=== PATIENT | male | born 1930 | race Caucasian/White ===

== ENCOUNTER 2017-11-01 16:52 | Inpatient (IN) | payer MEDICARE, MEDICAID ==
--- NOTE | 2017-11-01 18:32 | NUR ---
DAILY NURSING NOTE Patient came from [facility] via [facility], patient is asleep, easily arousable, responds to voice, such as his name, however responds minimally to pain stimuli, patient is on O2 @ 2lpm saturations @ 87%. other vitals checked YK=517/62, P=113, T=97.5, RR=22. Skin and body assessments done, skin is intact, noted redness on the rt. groin and blanchable redness on the sacrum. alum plant supervisor was notified due to patient unstable condition, assessed by Export Clerk Blood sugar was 139mg/dl. saturation is @ 91% @ 4LPM, RT was then notified to further assess the patient. MD was notified promptly for an order to transfer patient to ER. Received an order from Dr. Abdi to transfer patient in the ER at [facility] for further evaluation. Report was given to ER nurse Dominic Marcelo RN.
[2017-11-01] MEDS ORDERED: PRAV20TA4 PO (18:34)
[2017-11-01] MEDS ORDERED: ASPI-1094 PO (18:34)
[2017-11-01] MEDS ORDERED: ATOR20TA27 PO (18:34)
[2017-11-01] MEDS ORDERED: CLOP75TA15 PO (18:34)
[2017-11-01] MEDS ORDERED: ACET325C5 PO (18:34)
[2017-11-01] MEDS ORDERED: ONDA4SOL2 IV (18:34)
[2017-11-01] MEDS ORDERED: CHOL200074 PO (18:34)
== END 2017-11-01 18:15 | disposition short-term general hospital (02) | DRG 57 ==
PROVIDERS: ADMIT Physical Medicine & Rehabilitation Pain Medicine; ATTEND Physical Medicine & Rehabilitation Pain Medicine
DX: I69.398 Other sequelae of cerebral infarction (principal)

== ENCOUNTER 2017-11-01 18:18 | Inpatient (IN) | payer MEDICARE, MEDICAID ==
[~2017-11-01] VITALS: Ht 170.2 cm; Wt 80.4 kg
--- NOTE | 2017-11-01 18:21 | NUR ---
PT IS IN BED # 1A. PT IS RESTING IN BED COMFORTABLY, WAITING FOR ER MD EVALUATION.
[2017-11-01] MEDS ORDERED: ACET325C5 PO (18:34)
[2017-11-01] MEDS ORDERED: CLOP75TA15 PO (18:34)
[2017-11-01] MEDS ORDERED: ATOR20TA27 PO (18:34)
[2017-11-01] MEDS ORDERED: ASPI-1094 PO (18:34)
[2017-11-01] MEDS ORDERED: ONDA4SOL2 IV (18:34)
[2017-11-01] MEDS ORDERED: CHOL200074 PO (18:34)
[2017-11-01] MEDS ORDERED: PRAV20TA4 PO (18:34)
--- NOTE | 2017-11-01 18:37 | NUR ---
DR DURHAM EVALUATED THE PT.
--- NOTE | 2017-11-01 19:07 | NUR ---
REPORT GIVEN TO TRAVEL INFORMATION CENTER SUPERVISORFARROWING WORKER MOE.
--- NOTE | 2017-11-01 19:10 | NUR ---
report received from day shift nurse. pt aox1, able to state his name and follow commands. pt on 6L of O2 with simple mask O2sat at 96%. pt has shallow non labored breathing with equal respirations. VSS. lab at bedside for blood draw. will continue to monitor.
[2017-11-01 19:11] LABS: *BLOOD, URINE 3+ (NEGATIVE); *CLARITY,URINE CLOUDY (CLEAR); *COLOR,URINE YELLOW (YELLOW); *KETONES,URINE NEGATIVE (NEGATIVE); *PROTEIN,URINE 2+ (NEGATIVE); LEUKOCYTE ESTERASE ,URINE NEGATIVE (NEGATIVE); NITRITE, URINE NEGATIVE (NEGATIVE); UGLUCOSE NEGATIVE (NEGATIVE)
[2017-11-01 19:15] LABS: *BILIRUBIN,URIN 1+ (NEGATIVE)
[2017-11-01 19:33] LABS: WBC,URINE 0-3 /HPF (0-3)
[2017-11-01 19:34] LABS: BACTERIA,URINE NONE SEEN /HPF (NONE SEEN); SQUAMOUS EPITHELIAL CELL,UR NONE SEEN /HPF (NONE SEEN); URINE AMORPHOUS URATE MODERATE /HPF
[2017-11-01 19:35] LABS: BASOPHILS % (AUTO) 0.3 % (0.0-2.0); EOSINOPHILS % (AUTO) 0.1 % (0.0-7.0); HEMATOCRIT 48.9 % (36.7-47.1); HEMOGLOBIN 16.4 g/dL (12.5-16.3); LYMPHOCYTES # (AUTO) 0.8 K/uL (20.0-40.0); LYMPHOCYTES % (AUTO) 7.6 % (20.5-51.5); MEAN CORPUSCULAR HEMOGLOBIN 30.6 uug (23.8-33.4); MEAN CORPUSCULAR HGB CONC 34 g/dL (32.5-36.3); MEAN CORPUSCULAR VOLUME 91.2 fL (73.0-96.2); MONOCYTES # (AUTO) 1.3 K/uL (2.0-10.0); MONOCYTES % (AUTO) 11.8 % (0.0-11.0); NEUTROPHILS # (AUTO) 8.9 K/uL (1.8-8.9); NEUTROPHILS % (AUTO) 80.2 % (38.5-71.5); PLATELET COUNT (AUTO) 193 K/uL (152-348); RED BLOOD CELL COUNT(AUTO) 5.37 MIL/uL (4.06-5.63); WHITE BLOOD COUNT (AUTO) 11.1 K/uL (3.6-10.2)
[2017-11-01 20:22] LABS: ALANINE AMINOTRANSFERASE 21 U/L (16-63); ALKALINE PHOSPHATASE 89 U/L (50-136); ASPARTATE AMINOTRANSFERASE 15 U/L (15-37); BILIRUBIN,DIRECT 0.2 mg/dL (0.0-0.2); BILIRUBIN,TOTAL 0.9 mg/dL (0.2-1.0); CARBON DIOXIDE 23 mmol/L (21-32); CHLORIDE 105 mmol/L (98-107); CREATININE 1.4 mg/dL (0.6-1.3); GLUCOSE 135 mg/dL (74-106); POTASSIUM 4.2 mmol/L (3.5-5.1); TOTAL PROTEIN, SERUM 7.9 g/dL (6.4-8.2); UREA NITROGEN, BLOOD 30 mg/dL (7-18)
--- NOTE | 2017-11-01 20:36 | NUR ---
pt being transported to CT via gurney by [facility]. pt stable for transport, in no acute distress.
[2017-11-01] MEDS ORDERED: IV NORMAL SALINE 1000 ML BAG IV ONE (20:45)
--- NOTE | 2017-11-01 21:10 | NUR ---
pt returned from CT in no acute distress. VSS. pt placed back on monitor with o2 running at 6L via simple mask. no respiratory distress
[2017-11-01] MEDS ORDERED: IV NORMAL SALINE 100 ML ONE (22:37)
[2017-11-01] MEDS ORDERED: IOHEXOL 350 100 ML INFUS..BTL ONE (22:37)
--- NOTE | 2017-11-01 22:55 | NUR ---
epic paged per .
[2017-11-01] MEDS ORDERED: FUROSEMIDE 20 MG/2 ML VIAL IV ONE (23:30)
--- NOTE | 2017-11-01 23:30 | NUR ---
spoke to Nena MORALES and pt endorsed for continuity of care inpt.
[2017-11-01] MEDS ORDERED: FUROSEMIDE 100 MG/10 ML VIAL ONE (23:31)
[2017-11-02] MEDS ORDERED: Z GUARD REMEDY PASTE 57 GM TUBE TOP PRN (00:30)
[2017-11-02] MEDS ORDERED: ONDANSETRON 4 MG/2 ML VIAL IV PRN (00:30)
--- NOTE | 2017-11-02 00:39 | NUR ---
pt transported up to 2nd floor. in no acute distress.
[2017-11-02 00:48] VITALS: BP 115/61
--- NOTE | 2017-11-02 01:00 | NUR ---
RECEIVED PATIENT VIA GURNEY FROM ER. PATIENT IS ALERT TO NAME ONLY. SMILES WHEN SPOKEN TOO. PATIENT CAME TO FLOOR WITH SIMPLE MASK SATING 90% ON 8L. O2 INCREASED TO 10L ON SIMPLE MASK, PATIENT IS NOW SATING 94-95%. SHALLOW LABORED BREATHING NOTED UPON ARRIVAL TO FLOOR. PATIENTS BREATHING IS NOW NOTED, UNLABORED AND WNL. NO S/S OF ANY RESP. DISTRESS NOTED. PATIENT DOES NOT APPEAR TO BE IN ANY DISTRESS. VSS. PLACED ON TELE ORDERED, SR. H/L INTACT AND NOTED TO RIGHT FA #20 GAUGE. REDNESS NOTED TO BILATERAL GROIN AND SCROTUM. SKIN CARE PROVIDED AND Z-GUARD APPLIED. NO S/S OF PAIN OR DISCOMFORT. NO FACIAL GRIMACE NOTED. REPOSITIONED TO SIDE FOR COMFORT. BED ALARM ON. CALL LIGHT IN REACH. ALL NEEDS ATTENDED. WILL CONTINUE TO MONITOR.
[2017-11-02] MEDS: ENOXAPARIN SODIUM 30 MG/0.3 ML DISP.SYRIN SUBCUT SCH (01:24)
--- NOTE | 2017-11-02 01:30 | NUR ---
PATIENT GIVEN LOVENOX 30MG SQ ORDERED.
--- NOTE | 2017-11-02 02:44 | NUR ---
PATIENT CONTINUED ON SIMPLE MASK AT 10L SATING 96%. NO RESP. DISTRESS NOTED. ALL NEEDS ATTENDED.
[2017-11-02] MEDS ORDERED: FUROSEMIDE 40 MG/4 ML VIAL IV SCH (04:00)
[2017-11-02] MEDS: FUROSEMIDE 40 MG/4 ML VIAL IV SCH ×2 (04:11→09:14)
--- NOTE | 2017-11-02 04:20 | NUR ---
PATIENT ON TELE MONITOR, HEART RATE GOES UP TO THE 130'S. PATIENT IS A-FIB. UNCONTROLLED. CHECKED PATIENTS TEMPERATURE AND RECEIVED 99.3 AXILIARY= 100.3. COOLING MEASURES APPLIED AND PATIENT GIVEN TYLENOL 650MG SUPP. FOR ELEVATED TEMP. WILL CONTINUE TO MONITOR AND ASSESS.
[2017-11-02 04:21] VITALS: BP 105/55
[2017-11-02] MEDS: ACETAMINOPHEN 650 MG SUPP.RECT RC PRN (04:30)
--- NOTE | 2017-11-02 06:15 | NUR ---
PATIENT ASLEEP IN BED. LETHARGIC. ON TELE A-FIB, UNCONTROLLED 103-110. RECHECKED TEMPERATURE AND RECEIVED 98.9= 99.8, TEMP. SLOWLY TRENDING DOWN. REPOSITIONED TO SIDE. ALL OTHER VSS. MOUTH CARE PROVIDED. CONTINUED ON O2 SIMPLE MASK 7L SATING 96%. BED ALARM ON, CALL LIGHT IN REACH. ALL NEEDS ATTENDED. WILL CONTINUE TO MONITOR.
[2017-11-02 08:29] LABS: ABG BASE EXCESS -3.9 mmol/L; ABG HCO3 19.8 mmol/L; ABG PCO2 33.2 mmHg (35.0-45.0); ABG PH 7.394 (7.350-7.450); ABG PO2 132.2 mmHg (75.0-100.0); ABG SITE RIGHT RADIAL; ABG TOTAL HEMOGLOBIN 17.7 G/dL (13.5-18.0); COHb 1.1 % (0.5-1.5); MetHb 0.4 % (0.0-1.5); O2Hb 97.5 % (94.0-97.0)
--- NOTE | 2017-11-02 08:30 | NUR ---
hr 160's aflutter on tele. b/p 138/68- resp 30's tachypnic with shallow breathing. HOB elevated. JVD noted. pt on 6 liters simple mask with sat of 98%. pt lethargic. arousable to touch. Notified TECHNICAL PROJECT COORDINATOR Negerete. of situation. Ordered EKG and Awaiting ABG and awaiting further orders.
[2017-11-02 08:36] LABS: BASOPHILS % (AUTO) 0.2 % (0.0-2.0); EOSINOPHILS % (AUTO) 0.2 % (0.0-7.0); HEMATOCRIT 50.4 % (36.7-47.1); HEMOGLOBIN 16.7 g/dL (12.5-16.3); LYMPHOCYTES # (AUTO) 0.7 K/uL (20.0-40.0); LYMPHOCYTES % (AUTO) 5.9 % (20.5-51.5); MEAN CORPUSCULAR HEMOGLOBIN 30.2 uug (23.8-33.4); MEAN CORPUSCULAR HGB CONC 33 g/dL (32.5-36.3); MEAN CORPUSCULAR VOLUME 91.2 fL (73.0-96.2); MONOCYTES # (AUTO) 1.3 K/uL (2.0-10.0); MONOCYTES % (AUTO) 10.7 % (0.0-11.0); NEUTROPHILS # (AUTO) 9.7 K/uL (1.8-8.9); PLATELET COUNT (AUTO) 210 K/uL (152-348); RED BLOOD CELL COUNT(AUTO) 5.52 MIL/uL (4.06-5.63); WHITE BLOOD COUNT (AUTO) 11.7 K/uL (3.6-10.2)
[2017-11-02] MEDS ORDERED: ASPIRIN EC 81 MG TABLET.DR PO SCH (09:00)
[2017-11-02 09:05] LABS: CARBON DIOXIDE 19 mmol/L (21-32); CHLORIDE 103 mmol/L (98-107); CREATININE 1.6 mg/dL (0.6-1.3); GLUCOSE 135 mg/dL (74-106); MAGNESIUM 2.1 mg/dL (1.8-2.4); PHOSPHOROUS 5.5 mg/dL (2.5-4.9); POTASSIUM 4.2 mmol/L (3.5-5.1); UREA NITROGEN, BLOOD 34 mg/dL (7-18)
[2017-11-02] MEDS: ASPIRIN 81 MG TAB.CHEW PO SCH (09:14)
[2017-11-02] MEDS: CLOPIDOGREL 75 MG TABLET PO SCH (09:15)
--- NOTE | 2017-11-02 09:15 | NUR ---
Heart rhythm changed to SNR from Aflib. gave am meds Lasix given. Property Controller saw pt. ECHO done.
[2017-11-02] MEDS: Z GUARD REMEDY PASTE 57 GM TUBE TOP SCH ×2 (09:17→20:26)
[2017-11-02 11:32] VITALS: BP 131/66
[2017-11-02] MEDS: IV 1/2NS 1000 ML 500 ML IV PRN (12:01)
[2017-11-02] MEDS: ACETAMINOPHEN 325 MG TABLET PO PRN (15:26)
[2017-11-02 15:30] VITALS: BP 131/75
--- NOTE | 2017-11-02 18:08 | NUR ---
Pt has been SNR is Am @ 110's hr. resp 22. Pt remained aphasic with right side weakness. Pt responsive to touch. Groin redness - applied z guard. Iv was restarted on left FA. IV on right AC infiltrated. Pt tolerating IVF as ordered. Call light is within reach. Pt more arousable than this am. Call light is within reach.
--- NOTE | 2017-11-02 20:00 | NUR ---
Patient resting comfortably in bed, non verbal but responsive to touch. O2 6 L/mask in use O2Sat 95%. Current heart rate 111 bpm, Sinus tach w/ PAC's & rare PVC's on the monitor. Repositioned in bed, kept comfortable.
[2017-11-02 20:11] VITALS: BP 134/74
[2017-11-02] MEDS: ATORVASTATIN 20 MG TABLET PO SCH (20:20)
[2017-11-03] MEDS: ENOXAPARIN SODIUM 30 MG/0.3 ML DISP.SYRIN SUBCUT SCH (00:40)
[2017-11-03 00:53] VITALS: BP 120/65
[2017-11-03] MEDS: IV 1/2NS 1000 ML 500 ML IV PRN ×2 (02:08→08:38)
[2017-11-03 04:31] VITALS: BP 118/60
--- NOTE | 2017-11-03 05:14 | NUR ---
No significant change, sinus tach on the monitor. Patient remains tachypneic HR 25/min but no SOB noted. O2Sat 95% )2 6L/mask
--- NOTE | 2017-11-03 06:00 | NUR ---
Patient asleep, 4 blankets in use. Current temp. 99.6F, ice pack applied. Sinus Tach on the monitor.
[2017-11-03 07:10] LABS: BASOPHILS % (AUTO) 0.3 % (0.0-2.0); HEMATOCRIT 49.1 % (36.7-47.1); HEMOGLOBIN 16.3 g/dL (12.5-16.3); LYMPHOCYTES # (AUTO) 0.6 K/uL (20.0-40.0); LYMPHOCYTES % (AUTO) 5.4 % (20.5-51.5); MEAN CORPUSCULAR HEMOGLOBIN 30.4 uug (23.8-33.4); MEAN CORPUSCULAR HGB CONC 33 g/dL (32.5-36.3); MEAN CORPUSCULAR VOLUME 91.5 fL (73.0-96.2); MONOCYTES # (AUTO) 1.1 K/uL (2.0-10.0); MONOCYTES % (AUTO) 9.7 % (0.0-11.0); NEUTROPHILS % (AUTO) 84.6 % (38.5-71.5); PLATELET COUNT (AUTO) 247 K/uL (152-348); RED BLOOD CELL COUNT(AUTO) 5.37 MIL/uL (4.06-5.63); WHITE BLOOD COUNT (AUTO) 11.9 K/uL (3.6-10.2)
[2017-11-03 07:19] LABS: ALANINE AMINOTRANSFERASE 20 U/L (16-63); ALKALINE PHOSPHATASE 85 U/L (50-136); ASPARTATE AMINOTRANSFERASE 17 U/L (15-37); BILIRUBIN,TOTAL 0.6 mg/dL (0.2-1.0); CARBON DIOXIDE 20 mmol/L (21-32); CHLORIDE 108 mmol/L (98-107); CREATININE 4.4 mg/dL (0.6-1.3); GLUCOSE 119 mg/dL (74-106); HDL CHOLESTEROL 60 mg/dL (40-60); MAGNESIUM 2.7 mg/dL (1.8-2.4); PHOSPHOROUS 7.2 mg/dL (2.5-4.9); POTASSIUM 5.1 mmol/L (3.5-5.1); TOTAL PROTEIN, SERUM 7.6 g/dL (6.4-8.2); TRIGLYCERIDES 91 MG/DL (30-150); UREA NITROGEN, BLOOD 78 mg/dL (7-18)
[2017-11-03 07:21] LABS: THYROID STIMULATING HORMONE 2.059 mIU/mL (0.358-3.740)
[2017-11-03 07:38] LABS: CHOLESTEROL 174 mg/dL (<200)
[2017-11-03] MEDS: ACETAMINOPHEN 650 MG SUPP.RECT RC PRN (07:58)
[2017-11-03 08:00] VITALS: BP 125/69
[2017-11-03] MEDS: ASPIRIN 81 MG TAB.CHEW PO SCH (08:34)
[2017-11-03] MEDS: CLOPIDOGREL 75 MG TABLET PO SCH (08:34)
--- NOTE | 2017-11-03 08:35 | NUR ---
UNABLE TO TAKE ORAL MED FOR 0900 PT VERY LETHARGIC, T 101.[address] AND [address] FULLER AWARE
[2017-11-03] MEDS: Z GUARD REMEDY PASTE 57 GM TUBE TOP SCH ×2 (08:39→21:13)
[2017-11-03] MEDS ORDERED: PIPERACILLIN/TAZOBACTAM/D5W 50 ML IV SCH (08:45)
[2017-11-03] MEDS ORDERED: CEFTRIAXONE 1 G in IV DEXTROSE 5% 50 ML IV SCH (09:00)
[2017-11-03] MEDS: PIPERACILLIN/TAZOBACTAM/D5W 2.25 G in PREMIXED 1 EACH IV SCH ×3 (09:57→21:13)
--- NOTE | 2017-11-03 10:00 | NUR ---
BRUNER CATH INSERTED WITHOUT DIFFICULTY NOTED 700 ML OF DARK MIRNA URINE AT ONCE, CLOSELY MONITORED
[2017-11-03 10:55] LABS: *BILIRUBIN,URIN NEGATIVE (NEGATIVE); *BLOOD, URINE 2+ (NEGATIVE); *COLOR,URINE YELLOW (YELLOW); *KETONES,URINE NEGATIVE (NEGATIVE); *PROTEIN,URINE NEGATIVE (NEGATIVE); *UROBILINOGEN,URINE 0.2 E.U./dl (NORMAL); LEUKOCYTE ESTERASE ,URINE NEGATIVE (NEGATIVE); NITRITE, URINE NEGATIVE (NEGATIVE); UGLUCOSE NEGATIVE (NEGATIVE)
[2017-11-03 11:19] LABS: *CLARITY,URINE HAZY (CLEAR)
[2017-11-03 11:20] LABS: BACTERIA,URINE NONE SEEN /HPF (NONE SEEN); RBC,URINE TNTC /HPF (0-3); WBC,URINE 0-3 /HPF (0-3)
[2017-11-03 11:21] LABS: MUCUS,URINE FEW /LPF (0-FEW); SQUAMOUS EPITHELIAL CELL,UR FEW /HPF (NONE SEEN)
[2017-11-03] MEDS ORDERED: VANCOMYCIN IV 1,250 MG in IV DEXTROSE 5% 500 ML IV ONE (11:30)
[2017-11-03 12:00] VITALS: BP 127/65
--- NOTE | 2017-11-03 12:00 | NUR ---
NOTED BLOODY URINE FROM BRUNER, CLOSELY MONITORED HOSPITALIST MADE AWARE. STILL RUNNING LOW GRADE TEMPERATUE. STARTED ON ZOSYN AND VANCOMYCIN NO REACTION NOTED. SR ON MONITOR.
[2017-11-03 12:26] LABS: *CREATININE,URINE 21.1 mg/dL (30-125); *URINE TOTAL PROTEIN RANDOM < 6.0 mg/dL (<150/24HR)
--- NOTE | 2017-11-03 13:53 | NUR ---
Clinical pharmacy not-Vancomycin dosing per pharmacy Subjective: To start Vancomycin dosing on this patient for severe sepsis Objective: BUN 78 Scr 4.4 (ARF-no HD yet) WBC 11.9 Temp 101.1 Assessment/Plan: Since renal function is decreased, will dose by fall off random level(not ordered yet). Will check renal function tomorrow and decide next random. Will follow daily.
--- NOTE | 2017-11-03 15:00 | NUR ---
RESULTS OF UA SEEN BY HOSPITALIST, NO NEW ORDER
[2017-11-03 16:00] VITALS: BP 104/55
--- NOTE | 2017-11-03 18:28 | NUR ---
LATEST TEMP 97.8
[2017-11-03 20:00] VITALS: BP 134/70
[2017-11-03] MEDS: ATORVASTATIN 20 MG TABLET PO SCH (21:00)
--- NOTE | 2017-11-03 21:20 | NUR ---
Initial patient assessment completed. Pt is aphasic and no spontaneous movement of RUE or RLE noted. Moves LUE about, reaching toward urethral ochoa tubing. Eyes open spontaneously. Respirations are even, unlabored on 6L simple face mask. Urethral ochoa catheter in place draining serous fluid to gravity bag below her bladder, leg strap in place to prevent tension on bladder, tubing is patent. Pt is not quite cooperative/awake enough for me to feel comfortable giving PO fluid or pills at present. Will continue to monitor. 22 gauge PIV to dorsum of right hand patent, infusing ordered IV fluid and scheduled antibiotics without difficult. Currently afebrile, will continue to monitor for comfort and physiologic changes.
[2017-11-04] VITALS: BP 120/64
[2017-11-04] MEDS: IV 1/2NS 1000 ML 500 ML IV PRN ×2 (01:38→17:52)
[2017-11-04 04:00] VITALS: BP 117/66
[2017-11-04] MEDS: PIPERACILLIN/TAZOBACTAM/D5W 2.25 G in PREMIXED 1 EACH IV SCH ×4 (04:05→21:05)
[2017-11-04 06:44] LABS: BASOPHILS % (AUTO) 0.5 % (0.0-2.0); EOSINOPHILS # (AUTO) 0.4 K/uL (0.0-0.7); EOSINOPHILS % (AUTO) 4.4 % (0.0-7.0); HEMATOCRIT 44.2 % (36.7-47.1); HEMOGLOBIN 14.9 g/dL (12.5-16.3); LYMPHOCYTES # (AUTO) 0.7 K/uL (20.0-40.0); LYMPHOCYTES % (AUTO) 7.3 % (20.5-51.5); MEAN CORPUSCULAR HEMOGLOBIN 30.5 uug (23.8-33.4); MEAN CORPUSCULAR HGB CONC 34 g/dL (32.5-36.3); MEAN CORPUSCULAR VOLUME 90.6 fL (73.0-96.2); MONOCYTES # (AUTO) 0.7 K/uL (2.0-10.0); MONOCYTES % (AUTO) 7.3 % (0.0-11.0); NEUTROPHILS # (AUTO) 7.8 K/uL (1.8-8.9); NEUTROPHILS % (AUTO) 80.5 % (38.5-71.5); PLATELET COUNT (AUTO) 222 K/uL (152-348); RED BLOOD CELL COUNT(AUTO) 4.88 MIL/uL (4.06-5.63); WHITE BLOOD COUNT (AUTO) 9.6 K/uL (3.6-10.2)
[2017-11-04 07:11] LABS: ALANINE AMINOTRANSFERASE 21 U/L (16-63); ALKALINE PHOSPHATASE 73 U/L (50-136); ASPARTATE AMINOTRANSFERASE 16 U/L (15-37); BILIRUBIN,TOTAL 0.6 mg/dL (0.2-1.0); CARBON DIOXIDE 24 mmol/L (21-32); CHLORIDE 112 mmol/L (98-107); CREATININE 2.1 mg/dL (0.6-1.3); GLUCOSE 100 mg/dL (74-106); MAGNESIUM 2.7 mg/dL (1.8-2.4); PHOSPHOROUS 4.2 mg/dL (2.5-4.9); POTASSIUM 3.9 mmol/L (3.5-5.1); UREA NITROGEN, BLOOD 75 mg/dL (7-18)
--- NOTE | 2017-11-04 07:30 | NUR ---
PATIENT RESTING IN BED NO SS OF PAIN OR DISTRESS WITH 6L MASK OF O2 SATURATING 97%. SR/ST ON MONITOR CONTINUE WITH HODAN MONITORING
[2017-11-04 08:11] VITALS: BP 107/53
--- NOTE | 2017-11-04 08:30 | NUR ---
MOUTH CARE DONE. REMOVED BROWN AND THICK GUCK FROM THE ROOF OF THE PATIENT'S MOUTH. PT WAS ABLE TO FOLLOW SIMPLE COMMANDS TO OPEN HIS MOUTH AFTER EXPLAINING ADL.
[2017-11-04] MEDS: ASPIRIN 81 MG TAB.CHEW PO SCH (08:34)
[2017-11-04] MEDS: CLOPIDOGREL 75 MG TABLET PO SCH (08:34)
--- NOTE | 2017-11-04 08:35 | NUR ---
PO ASA AND PLAVIX NOT GIVEN PT STILL RESPONDING POORLY TO VERBAL CUES AWARE
[2017-11-04] MEDS ORDERED: VANCOMYCIN IV 1,250 MG in IV DEXTROSE 5% 500 ML IV ONE (10:00)
--- NOTE | 2017-11-04 10:09 | NUR ---
Clinical pharmacy not-Vancomycin dosing per pharmacy Subjective: To continue Vancomycin dosing on this 87 yo male patient for severe sepsis Objective: BUN 75 Scr 2.1 WBC 9.6 Temp 97.6 Vanco random level: 9.2 (with am labs- post 1250 mg IVPB x1 dose given yesterday at 1100am) ht 170 cm wt 82 kg Assessment/Plan: Due to decreased renal function, will continue to dose by fall off random level. Since vanco random level is sub-therapeutic, will give vanco 1250mg IVPB x1 dose today at 1000. Pharmacist shall check vanco random in am & decide when to order next random level for further dosing. Will follow daily.
[2017-11-04] MEDS: ENOXAPARIN SODIUM 30 MG/0.3 ML DISP.SYRIN SUBCUT SCH (10:47)
[2017-11-04] MEDS: Z GUARD REMEDY PASTE 57 GM TUBE TOP SCH ×2 (10:48→20:37)
[2017-11-04 11:39] VITALS: BP 105/68
--- NOTE | 2017-11-04 12:00 | NUR ---
PT WAS SEEN BY ST AND EVALUATED, DIET CHANGED TO PUREE WITH NECTAR THICK LIQUIDS, STRICT ASPIRATION PRECAUTION TO BE TAKEN WHEN FEEDING THE PT.
[2017-11-04 15:41] VITALS: BP 106/60
--- NOTE | 2017-11-04 16:54 | NUR ---
NOTED PT OPENS HIS EYES TO VERBAL STIMULATION, MAKES AN ATTEMPT TO ANSWER QUESTIONS, SPEECH IS SLOW. PT ABLE TO STATE HIS LAST NAME BUT UNABLE TO STATE WHERE HE IS AT. NOTED PT TO SMILE AND FOLLOWS COMMANDS. NOTABLE BROWN AND RED TINT URINE, NO BM NOTED TODAY. AT TIMES PT IS NOTED TO DRAW HIS LEFT HAND TO HIS PENIAL AREA PT IS SLEEPING AT THIS TIME, WITH NO APPARENT S/S OF SOB, DISTRESS, DISCOMFORT OR PAIN. TOLERATING ATB's WELL.
--- NOTE | 2017-11-04 18:34 | NUR ---
PATIENT TOLERATING PUREE DIET WITH THICK LIQUID, ASPIRATION PRECAUTION HIGHLY OBSERVED. PATIENT TENDS TO POCKET FOOD ORAL CARE GIVEN. REMAINS AFEBRILE AND SR ON MONITOR.
--- NOTE | 2017-11-04 19:30 | NUR ---
PT IN ROOM ALERT NON-VERBAL IN NO ACUTE DISTRESS. MAINTAINING OXYGEN AT 4L/MIN VIA N/C AT 96% SAT. PT MAINTAINING IV FLUIDS AT THIS TIME. RIGHT SIDE WEAKNESS STILL PRESENT. NO REACTION TO PREVIOUS ATB THERAPY. HOB ELEVATED 30 DEGREES WITH 3 SIDE RAILS RAISE. WILL CONTINUE TO MONITOR.
[2017-11-04] MEDS: LACTOBACILLUS RHAMNOSUS GG 1 EACH CAPSULE PO SCH (20:37)
[2017-11-04] MEDS: ATORVASTATIN 20 MG TABLET PO SCH (20:37)
[2017-11-04 20:42] VITALS: BP 114/67
[2017-11-05] VITALS: BP 130/71
--- NOTE | 2017-11-05 01:00 | NUR ---
PT IN ROOM ASLEEP IN NO ACUTE DISTRESS. NO REACTION TO RECENT ZOSYN IV ATB THERAPY. ANATOMY AND PHYSIOLOGY INSTRUCTOR SINUS TACHY 113 BPM. WILL CONTINUE TO MONITOR. V/S ARE WNL.
[2017-11-05] MEDS: PIPERACILLIN/TAZOBACTAM/D5W 2.25 G in PREMIXED 1 EACH IV SCH ×4 (03:01→21:04)
[2017-11-05 04:00] VITALS: BP 115/60
--- NOTE | 2017-11-05 05:30 | NUR ---
PT CONVERTED A-FIB IRREGULAR WITH 99-110 BPM. NO ACUTE DISTRESS. PT IS ASYMPTOMATIC AND HAS HISTORY OF A-FIB. NO REACTION TO RECENT ZOSYN IV ATB THERAPY. PT REPOSITIONED, ORAL CARE, AND F/C STILL PRESENT WITH HEMATURIA, BROWN COLOR. WILL CONTINUE TO MONITOR. HOB ELEVATED 30 DEGREES.
--- NOTE | 2017-11-05 07:20 | NUR ---
Received pt in bed sleeping. No immediate s/s of pain, distress, discomfort or SOB. Bed at lowest position for safety.
[2017-11-05 07:39] VITALS: BP 110/55
[2017-11-05] MEDS: Z GUARD REMEDY PASTE 57 GM TUBE TOP PRN (08:16)
[2017-11-05] MEDS: ASPIRIN 81 MG TAB.CHEW PO SCH (08:16)
[2017-11-05] MEDS: CLOPIDOGREL 75 MG TABLET PO SCH (08:16)
[2017-11-05] MEDS: LACTOBACILLUS RHAMNOSUS GG 1 EACH CAPSULE PO SCH ×2 (08:16→20:39)
[2017-11-05] MEDS: ENOXAPARIN SODIUM 30 MG/0.3 ML DISP.SYRIN SUBCUT SCH (08:18)
[2017-11-05] MEDS: IV 1/2NS 1000 ML 500 ML IV PRN ×2 (08:24→20:45)
--- NOTE | 2017-11-05 08:37 | NUR ---
Chest xray being done at this time
[2017-11-05] MEDS: Z GUARD REMEDY PASTE 57 GM TUBE TOP SCH ×2 (09:32→20:41)
--- NOTE | 2017-11-05 11:05 | NUR ---
Pt seen by Dr Hale with orders to: DC Watkins and a consultation GT placement due to poor PO intake
[2017-11-05 11:39] VITALS: BP 102/54
--- NOTE | 2017-11-05 11:44 | NUR ---
Watkins has been removed, noted 200ml and 150 mls urine output. Will start monitoring for urine output without the Watkins
[2017-11-05 15:05] VITALS: BP 103/55
[2017-11-05] MEDS: ACETAMINOPHEN 650 MG SUPP.RECT RC PRN ×2 (15:22→21:03)
--- NOTE | 2017-11-05 17:57 | NUR ---
SEEN BY GI PROGRAM REP FOR CONSULT RE: PEG PLACEMENT SEE NOTES. TRIED TO REACH ASSISTED LIVING FOR CONSENT SPOKE TO PATTI PEG DRIVER SAID NO NEXT OF KIN. GI PROGRAM REP MADE AWARE WILL NOTIFY DR THOMASON.
--- NOTE | 2017-11-05 18:34 | NUR ---
DR THOMASON AND DR WOOTEN NOTIFIED FOR CARDIAC CLEARANCE/CONSENT FOR GT PLACEMENT, AWAITING CALL BACK
--- NOTE | 2017-11-05 18:44 | NUR ---
DR THOMASON CALLED BACK AND WILL SEE PT IN AM AND MEANWHILE HE WILL TALK TO DR COTO AND DISCUSS PLAN FOR DOING Friday11/07/17 INSTEAD OF Friday11/06/17
[2017-11-05 20:00] VITALS: BP 124/60
[2017-11-05] MEDS: ATORVASTATIN 20 MG TABLET PO SCH (20:39)
--- NOTE | 2017-11-05 21:00 | NUR ---
Patient in awake, non verbal. NO SOB noted but rapid respiration noted. Humidified O2 5L/NC in use O2Sat 94%. Patient has temp of 99.5 F. Tylenol 650 mg supp adm, coolingt measures provided ice pack applied. Sinus rhythm w/ PACs on the monitor.
--- NOTE | 2017-11-05 22:48 | NUR ---
Placed on NPO status, patient not tolerating p.o meds
[2017-11-06] VITALS: BP 141/67
[2017-11-06] MEDS: IV 1/2NS 1000 ML 500 ML IV PRN ×2 (00:59→09:18)
--- NOTE | 2017-11-06 01:30 | NUR ---
Patient awake slightly anxious. Bladder distention noted, diaper remains dry no urine output. Bladder scan shows 542 ml. Straight cath performed. Hematuria noted. Sponge bath provided, repositioned in bed kept comfortable. Sinus rhythm on the monitor.
--- NOTE | 2017-11-06 02:23 | NUR ---
PATIENT NOTED WITH 700ML URINE OUTPUT VIA STRAIGHT CATHETER. PT TOLERATED WELL. COLOR NOTED MIRNA. WILL CONTINUE TO MONITOR.
--- NOTE | 2017-11-06 02:40 | NUR ---
Patient asleep, resting comfortably. No signs of distress.
[2017-11-06] MEDS: PIPERACILLIN/TAZOBACTAM/D5W 2.25 G in PREMIXED 1 EACH IV SCH ×4 (03:05→21:14)
[2017-11-06 04:00] VITALS: BP 112/57
[2017-11-06] MEDS: Z GUARD REMEDY PASTE 57 GM TUBE TOP PRN (05:37)
--- NOTE | 2017-11-06 06:14 | NUR ---
PT'S BLADDER SCANNED AND NOTED 317ML AT THIS TIME. WILL CONTINUE TO MONITOR.
[2017-11-06 07:23] VITALS: BP 131/68
--- NOTE | 2017-11-06 07:50 | NUR ---
Awake, alert, oriented to name. Delayed, slurred speech. Follows command. Right sided weakness. O2 at 5L/NC with O2 sat of 97%. O2 decreased to 4L/NC. IVF infusing. NPO maintained.
[2017-11-06] MEDS: ENOXAPARIN SODIUM 30 MG/0.3 ML DISP.SYRIN SUBCUT SCH (09:00)
[2017-11-06] MEDS: LACTOBACILLUS RHAMNOSUS GG 1 EACH CAPSULE PO SCH ×2 (09:00→20:08)
[2017-11-06 09:10] LABS: BASOPHILS # (AUTO) 0.1 K/uL (0.0-8.0); BASOPHILS % (AUTO) 0.8 % (0.0-2.0); EOSINOPHILS # (AUTO) 0.4 K/uL (0.0-0.7); EOSINOPHILS % (AUTO) 5.5 % (0.0-7.0); HEMATOCRIT 41.3 % (36.7-47.1); HEMOGLOBIN 14.1 g/dL (12.5-16.3); LYMPHOCYTES # (AUTO) 0.9 K/uL (20.0-40.0); LYMPHOCYTES % (AUTO) 13.6 % (20.5-51.5); MEAN CORPUSCULAR HEMOGLOBIN 31.2 uug (23.8-33.4); MEAN CORPUSCULAR HGB CONC 34 g/dL (32.5-36.3); MEAN CORPUSCULAR VOLUME 91.3 fL (73.0-96.2); MONOCYTES # (AUTO) 0.6 K/uL (2.0-10.0); MONOCYTES % (AUTO) 9.3 % (0.0-11.0); NEUTROPHILS # (AUTO) 4.6 K/uL (1.8-8.9); NEUTROPHILS % (AUTO) 70.8 % (38.5-71.5); PLATELET COUNT (AUTO) 199 K/uL (152-348); RED BLOOD CELL COUNT(AUTO) 4.53 MIL/uL (4.06-5.63); WHITE BLOOD COUNT (AUTO) 6.6 K/uL (3.6-10.2)
[2017-11-06] MEDS: Z GUARD REMEDY PASTE 57 GM TUBE TOP SCH ×2 (09:17→20:08)
[2017-11-06 09:37] LABS: ALANINE AMINOTRANSFERASE 32 U/L (16-63); ALKALINE PHOSPHATASE 59 U/L (50-136); ASPARTATE AMINOTRANSFERASE 33 U/L (15-37); BILIRUBIN,TOTAL 0.4 mg/dL (0.2-1.0); CARBON DIOXIDE 26 mmol/L (21-32); CHLORIDE 116 mmol/L (98-107); CREATININE 1.3 mg/dL (0.6-1.3); GLUCOSE 92 mg/dL (74-106); MAGNESIUM 2.5 mg/dL (1.8-2.4); PHOSPHOROUS 2.9 mg/dL (2.5-4.9); POTASSIUM 3.9 mmol/L (3.5-5.1); TOTAL PROTEIN, SERUM 6.5 g/dL (6.4-8.2); UREA NITROGEN, BLOOD 54 mg/dL (7-18)
[2017-11-06 11:06] VITALS: BP 124/62
--- NOTE | 2017-11-06 12:00 | NUR ---
Bladder scan done with 456 ml urine residual. Ochoa catheter placed with dark tea colored, hematuria urine. Dr. Hale informed, okay to placed ochoa.
--- NOTE | 2017-11-06 14:00 | NUR ---
Dr. Hale seen patient, clarified orders. Also clarified PEG placement schedule with Enriqueta, it will be on Friday.
[2017-11-06 15:26] VITALS: BP 132/63
[2017-11-06] MEDS ORDERED: JEVITY 1.2 1000 ML LIQUID NG SCH (15:30)
[2017-11-06] MEDS ORDERED: FIBERSOURCE HN 1000ML LIQUID GT SCH (15:45)
[2017-11-06] MEDS: IV D5W 1000ML 1,000 ML IV SCH (16:01)
--- NOTE | 2017-11-06 16:30 | NUR ---
IVF changed to D5W. NGT placed with several attempts. Awaiting CXR for placement
--- NOTE | 2017-11-06 18:23 | NUR ---
NGT placed but not the salem sump because of coiling, not seen in chest x ray. Placement verified with Angelique through auscultation and aspiration. Tube feedings started.
[2017-11-06] MEDS: FIBERSOURCE HN 1000ML LIQUID NG SCH (18:35)
[2017-11-06] MEDS: RIVAROXABAN 15 MG TABLET NG SCH (18:39)
[2017-11-06 19:43] VITALS: BP 120/57
[2017-11-06] MEDS: ACETAMINOPHEN 325 MG TABLET PO PRN (20:08)
[2017-11-06] MEDS: ATORVASTATIN 20 MG TABLET PO SCH (20:08)
--- NOTE | 2017-11-06 20:27 | NUR ---
Patient in room w/ head of bed elevated 45 degrees. Awake & alert, able to respond verbally but garbled speech noted. NGT in place, checked for patency through auscultation, continuos feeding tolerating well. No residual noted. Routine night meds administered. Suctioned & oral care provided, kept comfortable. Aspiration precaution observed. Sinus rhythm on the monitor. Vital signs are stable. No sign of distress noted.
--- NOTE | 2017-11-06 23:38 | NUR ---
Resting comfortably, no sign of distress, sinus rhythm on the monitor.
[2017-11-07] VITALS: BP 134/83
--- NOTE | 2017-11-07 02:00 | NUR ---
Bed bath provided, complete bed linen change done. Kept comfortable.
[2017-11-07 04:00] VITALS: BP 105/54
[2017-11-07] MEDS: PIPERACILLIN/TAZOBACTAM/D5W 2.25 G in PREMIXED 1 EACH IV SCH ×4 (04:03→21:00)
[2017-11-07] MEDS: Z GUARD REMEDY PASTE 57 GM TUBE TOP PRN (04:24)
--- NOTE | 2017-11-07 06:39 | NUR ---
Afebrile overnight, no acute resp distress, vital signs are stable. Sinus rhythm w/ PACs & PVCs on the monitor HR 100 bpm.Will continue to monitor.
[2017-11-07 08:00] VITALS: BP 120/59
--- NOTE | 2017-11-07 08:00 | NUR ---
PLACED ICE PACKS, PATIENT SINUS TACHYCARDIA AT 105, AND 100.4 FEVER. TYLENOL GIVEN. PATIENT IS STILL HAVING HEMATURIA.
[2017-11-07] MEDS: ACETAMINOPHEN 325 MG TABLET PO PRN (08:27)
[2017-11-07] MEDS: LACTOBACILLUS RHAMNOSUS GG 1 EACH CAPSULE PO SCH ×2 (08:27→20:59)
[2017-11-07] MEDS: Z GUARD REMEDY PASTE 57 GM TUBE TOP SCH ×2 (08:29→20:59)
[2017-11-07] MEDS: IV D5W 1000ML 1,000 ML IV SCH (08:41)
--- NOTE | 2017-11-07 11:00 | NUR ---
PATIENT IS BACK TO SINUS RHYTHM FEVER 99.5. PATIENT STILL HAS ICE PACKS.
--- NOTE | 2017-11-07 11:00 | NUR ---
[facility] NO LONGER TELE [facility].
[2017-11-07 11:10] VITALS: BP 115/53
[2017-11-07 15:20] VITALS: BP 113/60
[2017-11-07] MEDS: RIVAROXABAN 15 MG TABLET NG SCH (17:11)
--- NOTE | 2017-11-07 19:15 | NUR ---
RECEIVED PT AWAKE, ALERT , ORIENTED X2. PT SHOWS NO SIGNS OF DISTRESS. PT IV INTACT AND PATENT.PT WITH NGT TUBE FEEDING AND WITH BRUNER CATHETER. CALL LIGHT WITHIN REACH. BED ALARM ON AND IN LOW POSITION. WILL CONTINUE TO MONITOR.
[2017-11-07 20:14] VITALS: BP 108/60
[2017-11-07] MEDS: ATORVASTATIN 20 MG TABLET PO SCH (20:59)
[2017-11-07] MEDS: FIBERSOURCE HN 1000ML LIQUID NG SCH (23:27)
[2017-11-08] MEDS: PIPERACILLIN/TAZOBACTAM/D5W 2.25 G in PREMIXED 1 EACH IV SCH ×2 (03:08→09:04)
[2017-11-08] MEDS: IV D5W 1000ML 1,000 ML IV PRN (03:09)
[2017-11-08 05:22] VITALS: BP 118/67
--- NOTE | 2017-11-08 06:12 | NUR ---
PT SLEPT THROUGHOUT THE SHIFT. PT SHOWS NO SIGNS OF DISTRESS. PT VITAL SIGNS WITHIN NORMAL LIMIT. PRESCRIBED MEDICATION GIVEN AND PT TOLERATED IT WELL. IV INTACT AND PATENT. NG TUBE AND BRUNER CATHETER INTACT AND FUNCTIONING WELL. CALL LIGHT WITHIN REACH, BED ALARM ON AND IN LOW POSITION. SIDE RAILSX2. WILL ENDORSE TO DAYSHIFT NURSE.
--- NOTE | 2017-11-08 07:30 | NUR ---
Awake, responsive to verbal stimuli, opens eyes, speech delayed, slurred, able to say name.On moderate high back rest. O2 at 2L/NC. IVF infusing. NGT intact with Fibersource HN. Watkins catheter to drainage bag with dark tea colored urine
[2017-11-08] MEDS: LACTOBACILLUS RHAMNOSUS GG 1 EACH CAPSULE PO SCH ×2 (09:03→20:52)
[2017-11-08] MEDS: Z GUARD REMEDY PASTE 57 GM TUBE TOP SCH ×2 (09:04→20:55)
--- NOTE | 2017-11-08 09:30 | NUR ---
NGT coiling in the mouth after oral care and suctioning. Attempted to reposition but failed. New NGT placed. PCXR requested.
--- NOTE | 2017-11-08 10:30 | NUR ---
PCXR done to check placement of NGT.
--- NOTE | 2017-11-08 11:30 | NUR ---
Per result, NGT at distal end of esophagus. Repositioned. PCXR requested.
[2017-11-08 11:48] LABS: CARBON DIOXIDE 25 mmol/L (21-32); CHLORIDE 111 mmol/L (98-107); CREATININE 1.2 mg/dL (0.6-1.3); GLUCOSE 124 mg/dL (74-106); UREA NITROGEN, BLOOD 31 mg/dL (7-18)
[2017-11-08 11:58] VITALS: BP 107/56
[2017-11-08] MEDS: PIPERACILLIN/TAZOBACTAM/D5W 50 ML IV SCH ×2 (14:27→20:52)
[2017-11-08 15:50] VITALS: BP 111/62
--- NOTE | 2017-11-08 17:00 | NUR ---
Dr. Hale seen patient. Informed of several attempts of NGT insertion because of coiling of tube. Patient still needs NGT. X ray report in. NGT placement verified with auscultation and aspiration with CHANTEL Merino. Tube feeding restarted and water flushes given with medications. HOB elevated. Oral care done. With BM. Incontinence care done. Placed on air mattress. Repositioned comfortably
[2017-11-08] MEDS: RIVAROXABAN 15 MG TABLET NG SCH (17:52)
--- NOTE | 2017-11-08 19:10 | NUR ---
RECEIVED PT ASLEEP AWAKE ON BED. PT SHOWS NO SIGNS OF ACUTE DISTRESS. PT VITAL SIGNS WITHIN NORMAL LIMIT. PT IV INTACT AND PATENT. NGT-TUBE AND BRUNER CATHETER INTACT.PT ON 2L NASAL CANULA. CALL LIGHT WITHIN REACH. BED ALARM ON AND IN LOW POSITION, SIDE RAILSX2. WILL CONTINUE TO MONITOR.
[2017-11-08 20:17] VITALS: BP 115/67
[2017-11-08] MEDS: ACETAMINOPHEN 325 MG TABLET PO PRN (20:52)
[2017-11-08] MEDS: ATORVASTATIN 20 MG TABLET PO SCH (20:52)
[2017-11-09] MEDS: IV D5W 1000ML 1,000 ML IV PRN ×2 (00:37→20:45)
[2017-11-09] MEDS: PIPERACILLIN/TAZOBACTAM/D5W 50 ML IV SCH ×4 (02:40→20:36)
[2017-11-09 04:24] VITALS: BP 108/57
[2017-11-09 06:09] LABS: EOSINOPHILS # (AUTO) 0.8 K/uL (0.0-0.7)
--- NOTE | 2017-11-09 06:15 | NUR ---
PT SLEPT THROUGHOUT THE SHIFT. PT SHOWS NO SIGNS OF DISTRESS. PT IV INTACT AND PATENT.NG-TUBE AND BRUNER CATHETER INTACT AND FUNCTIONING WELL.PRESCRIBED MEDICATION GIVEN AND PT TOLERATED IT WELL. PT STABLE. PT ON 2L NASAL CANULA. PT WILL STOP ANTICOAGULANT MEDICATION FOR TODAY IN PREPARATION FOR PEG TUBE PLACEMENT PILLO. FLUSH 200CC Q6H IN NGT-TUBE PER DOCTOR ORDERED.CALL LIGHT WITHIN REACH. BED ALARM ON AND IN LOW POSITION, SIDE RAILSX2. WILL ENDORSE TO DAYSHIFT NURSE.
[2017-11-09 07:55] LABS: ALANINE AMINOTRANSFERASE 36 U/L (16-63); ALKALINE PHOSPHATASE 76 U/L (50-136); ASPARTATE AMINOTRANSFERASE 35 U/L (15-37); BILIRUBIN,TOTAL 0.5 mg/dL (0.2-1.0); CARBON DIOXIDE 25 mmol/L (21-32); CHLORIDE 105 mmol/L (98-107); GLUCOSE 109 mg/dL (74-106); MAGNESIUM 2.2 mg/dL (1.8-2.4); PHOSPHOROUS 3.5 mg/dL (2.5-4.9); POTASSIUM 3.8 mmol/L (3.5-5.1); TOTAL PROTEIN, SERUM 5.9 g/dL (6.4-8.2); UREA NITROGEN, BLOOD 24 mg/dL (7-18)
--- NOTE | 2017-11-09 08:00 | NUR ---
pt aphasic and unable to express self when asked. NGT placement audible in stomach. No residual noted. FiberSource running @ 40cc/hr tolerated. IV on left f/a intact. F/C draining dark olga unine. d5@60cc/hr. Pt on air mattress. Fall and aspiration precaution and proper pain management implemented. Call light is within reach.
[2017-11-09 08:03] LABS: BASOPHILS % (AUTO) 0.4 % (0.0-2.0); EOSINOPHILS % (AUTO) 7.3 % (0.0-7.0); HEMATOCRIT 43.3 % (36.7-47.1); HEMOGLOBIN 14.4 g/dL (12.5-16.3); LYMPHOCYTES # (AUTO) 1.1 K/uL (20.0-40.0); LYMPHOCYTES % (AUTO) 10.4 % (20.5-51.5); MEAN CORPUSCULAR HEMOGLOBIN 30.2 uug (23.8-33.4); MEAN CORPUSCULAR HGB CONC 33 g/dL (32.5-36.3); MEAN CORPUSCULAR VOLUME 90.8 fL (73.0-96.2); MONOCYTES # (AUTO) 0.8 K/uL (2.0-10.0); MONOCYTES % (AUTO) 7.9 % (0.0-11.0); NEUTROPHILS # (AUTO) 7.6 K/uL (1.8-8.9); PLATELET COUNT (AUTO) 184 K/uL (152-348); RED BLOOD CELL COUNT(AUTO) 4.77 MIL/uL (4.06-5.63)
[2017-11-09 08:04] LABS: WHITE BLOOD COUNT (AUTO) 10.3 K/uL (3.6-10.2)
[2017-11-09] MEDS: LACTOBACILLUS RHAMNOSUS GG 1 EACH CAPSULE PO SCH ×2 (08:37→20:37)
[2017-11-09] MEDS: Z GUARD REMEDY PASTE 57 GM TUBE TOP SCH ×2 (08:38→21:23)
--- NOTE | 2017-11-09 10:00 | NUR ---
Dr bowie here to see pt. LAbs ordered for am. Pt behaved and not pulling on any lines and tubing. AM care done by INFORMATICS COORDINATOR. Call light is within reach.
[2017-11-09 11:43] VITALS: BP 108/61
[2017-11-09] MEDS: FIBERSOURCE HN 1000ML LIQUID NG SCH (15:12)
[2017-11-09 15:32] VITALS: BP 105/79
--- NOTE | 2017-11-09 18:00 | NUR ---
Pt getting anxious and pulling on f/c. Hide tubings and charting in front of pt's room. to monitor patient. Call lgith is within reach.
--- NOTE | 2017-11-09 18:38 | NUR ---
Noted Pt pulling on f/c. f/c shows some bloody hematuria. Applied mittens on as ordered. Decreased stimuli and hiding tubings @1800 not effective.
--- NOTE | 2017-11-09 19:45 | NUR ---
nsg: pt received awake but confused. no acute distress noted. ngt with tf, fibersource at 40ml/hr. f/c draining hematuria, pt tried to pull f/c awhile ago. left hand with mittens, right arm flaccid. on 1st step mattress. cont to monitor.
[2017-11-09 20:24] VITALS: BP 105/54
[2017-11-09] MEDS: ATORVASTATIN 20 MG TABLET PO SCH (20:37)
[2017-11-09] MEDS: ACETAMINOPHEN 325 MG TABLET PO PRN (20:37)
[2017-11-10] MEDS: PIPERACILLIN/TAZOBACTAM/D5W 50 ML IV SCH ×4 (03:33→20:38)
[2017-11-10 04:00] VITALS: BP 112/54
[2017-11-10 06:33] LABS: BASOPHILS % (AUTO) 0.3 % (0.0-2.0); EOSINOPHILS # (AUTO) 0.8 K/uL (0.0-0.7); EOSINOPHILS % (AUTO) 7.4 % (0.0-7.0); HEMATOCRIT 40.2 % (36.7-47.1); HEMOGLOBIN 13.4 g/dL (12.5-16.3); LYMPHOCYTES # (AUTO) 1.1 K/uL (20.0-40.0); LYMPHOCYTES % (AUTO) 10.4 % (20.5-51.5); MEAN CORPUSCULAR HEMOGLOBIN 30.3 uug (23.8-33.4); MEAN CORPUSCULAR HGB CONC 33 g/dL (32.5-36.3); MEAN CORPUSCULAR VOLUME 90.8 fL (73.0-96.2); MONOCYTES # (AUTO) 0.8 K/uL (2.0-10.0); MONOCYTES % (AUTO) 7.9 % (0.0-11.0); NEUTROPHILS # (AUTO) 7.7 K/uL (1.8-8.9); PLATELET COUNT (AUTO) 195 K/uL (152-348); RED BLOOD CELL COUNT(AUTO) 4.43 MIL/uL (4.06-5.63); WHITE BLOOD COUNT (AUTO) 10.4 K/uL (3.6-10.2)
--- NOTE | 2017-11-10 06:39 | NUR ---
nsg: pt alert but confused. no acute distress noted. tolerating TF well, no residual. repositioned. kept clean and dry. all needs attended.
[2017-11-10 06:49] LABS: ALANINE AMINOTRANSFERASE 33 U/L (16-63); ALKALINE PHOSPHATASE 76 U/L (50-136); ASPARTATE AMINOTRANSFERASE 33 U/L (15-37); BILIRUBIN,TOTAL 0.3 mg/dL (0.2-1.0); CARBON DIOXIDE 28 mmol/L (21-32); CHLORIDE 104 mmol/L (98-107); GLUCOSE 108 mg/dL (74-106); PHOSPHOROUS 3.2 mg/dL (2.5-4.9); UREA NITROGEN, BLOOD 19 mg/dL (7-18)
--- NOTE | 2017-11-10 07:30 | NUR ---
Awake, oriented to name. Delayed, slurred verbal response. O2 at 2L/NC. NGT intact with Fibersource HN at 40 ml/hr. IVF infusing. Watkins catheter to drainage bag. Mittens to left hand, monitored per protocol.
[2017-11-10] MEDS: LACTOBACILLUS RHAMNOSUS GG 1 EACH CAPSULE PO SCH ×2 (09:27→20:38)
[2017-11-10] MEDS: Z GUARD REMEDY PASTE 57 GM TUBE TOP SCH ×2 (09:29→20:39)
[2017-11-10 12:00] VITALS: BP 112/64
--- NOTE | 2017-11-10 14:00 | NUR ---
With BM to soft stool in moderate amount. Incontinence care. Repositioned comfortably.
[2017-11-10] MEDS: IV D5W 1000ML 1,000 ML IV PRN (14:32)
[2017-11-10 16:00] VITALS: BP 109/65
--- NOTE | 2017-11-10 18:55 | NUR ---
Noted coughing, oral secretions suctioned. NGT placement auscultated. Hold Tube feedings for aspiration precaution. Endorsed for further care and follow up
--- NOTE | 2017-11-10 19:15 | NUR ---
RECEIVED PT ASLEEP ON BED. PT SHOWS NO SIGNS OF DISTRESS. PT IV INFUSING. BRUNER CATHETER INTACT . PT ON OXYGEN NASAL CANULA 3L. PEG PLACEMENT WILL BE PILLO 8AM. PT HAVE OCCASIONAL COUGH. WILL CONTINUE TO MONITOR.
[2017-11-10 20:00] VITALS: BP_SYST 108; BP_SYST 116; BP_DIAS 62; BP_DIAS 68
[2017-11-10] MEDS: ATORVASTATIN 20 MG TABLET PO SCH (20:38)
[2017-11-10] MEDS: ACETAMINOPHEN 325 MG TABLET PO PRN (20:38)
[2017-11-11] MEDS: PIPERACILLIN/TAZOBACTAM/D5W 50 ML IV SCH ×4 (03:08→20:22)
--- NOTE | 2017-11-11 05:56 | NUR ---
PT SLEPT INTERMITTENTLY. PT SHOWS NO SIGNS OF DISTRESS. PT HAVE OCCASIONAL COUGH. PT VITAL SIGNS WITHIN NORMAL LIMIT.PT NG-TUBE INTACT AND NPO AT MIDNIGHT. REPOSITION THE PT COMFORTABLE. PT IV INTACT AND PATENT. BRUNER INTACT AND DWELLING TEA COLORED URINE. PREOP CHECKLIST DONE. PRESCRIBED MEDICATION GIVEN AND PT TOLERATED IT WELL. CALL LIGHT WITHIN REACH. BED ALARM ON AND IN LOW POSITION. WILL ENDORSE TO DAYSHIFT NURSE.
[2017-11-11 06:00] VITALS: BP 111/63
[2017-11-11 07:05] LABS: ALANINE AMINOTRANSFERASE 35 U/L (16-63); ALKALINE PHOSPHATASE 74 U/L (50-136); ASPARTATE AMINOTRANSFERASE 30 U/L (15-37); BILIRUBIN,TOTAL 0.5 mg/dL (0.2-1.0); CARBON DIOXIDE 25 mmol/L (21-32); CHLORIDE 103 mmol/L (98-107); CREATININE 1.1 mg/dL (0.6-1.3); GLUCOSE 103 mg/dL (74-106); PHOSPHOROUS 3.3 mg/dL (2.5-4.9); POTASSIUM 3.9 mmol/L (3.5-5.1); TOTAL PROTEIN, SERUM 6.5 g/dL (6.4-8.2); UREA NITROGEN, BLOOD 17 mg/dL (7-18)
--- NOTE | 2017-11-11 07:20 | NUR ---
RECEIVED REPORT FROM TECHNICAL ENGINEER NURSE, PATIENT IN BED ASLEEP, BRUNER DRAINING TEA COLORED URINE, STABILIZATION DEVICE APPLIED TO LEG, IV FLUSHED WITH NO RESISTANCE. BED IN LOW POSITION, SIDE RAILS UP X2, AIR MATTRESS INFLATED. NG TUBE INTACT. OXYGEN ON 3.L.
[2017-11-11 07:26] LABS: BASOPHILS # (AUTO) 0.1 K/uL (0.0-8.0); BASOPHILS % (AUTO) 0.6 % (0.0-2.0); EOSINOPHILS # (AUTO) 0.6 K/uL (0.0-0.7); EOSINOPHILS % (AUTO) 5.7 % (0.0-7.0); HEMATOCRIT 41.8 % (36.7-47.1); LYMPHOCYTES % (AUTO) 10.3 % (20.5-51.5); MEAN CORPUSCULAR HGB CONC 33 g/dL (32.5-36.3); MEAN CORPUSCULAR VOLUME 89.8 fL (73.0-96.2); MONOCYTES # (AUTO) 0.8 K/uL (2.0-10.0); MONOCYTES % (AUTO) 7.8 % (0.0-11.0); NEUTROPHILS # (AUTO) 7.7 K/uL (1.8-8.9); NEUTROPHILS % (AUTO) 75.6 % (38.5-71.5); PLATELET COUNT (AUTO) 242 K/uL (152-348); RED BLOOD CELL COUNT(AUTO) 4.66 MIL/uL (4.06-5.63); WHITE BLOOD COUNT (AUTO) 10.1 K/uL (3.6-10.2)
--- NOTE | 2017-11-11 07:52 | NUR ---
PATIENT WAS TRANSFERRED TO SURGERY.
[2017-11-11] MEDS ORDERED: JEVITY 1.2 1000 ML LIQUID NG SCH (08:25)
--- NOTE | 2017-11-11 09:36 | NUR ---
GAVE REPORT TO GENEVIEVE HOFFMAN. PATIENT IS STILL IN SURGERY.
[2017-11-11] MEDS: Z GUARD REMEDY PASTE 57 GM TUBE TOP SCH ×2 (10:03→20:22)
[2017-11-11 10:23] VITALS: BP 130/64
[2017-11-11] MEDS: LACTOBACILLUS RHAMNOSUS GG 1 EACH CAPSULE PO SCH (11:21)
[2017-11-11] MEDS: IV D5W 1000ML 1,000 ML IV PRN (12:32)
[2017-11-11] MEDS ORDERED: PROPOFOL 200 MG/20 ML BOTTLE IV ONE (14:28)
[2017-11-11 15:16] VITALS: BP 112/57
[2017-11-11 20:00] VITALS: BP 144/72
[2017-11-11] MEDS ORDERED: ACETAMINOPHEN 650 MG/20.3 ML LIQUID UDC GT PRN (20:00)
[2017-11-11] MEDS ORDERED: JEVITY 1.2 1000 ML LIQUID GT SCH (20:00)
--- NOTE | 2017-11-11 20:00 | NUR ---
Pt observed to be awake and nonverbal. GT flushing well with no residuals noted. Feeding Jevity 1.2 noted to be running as ordered. HOB elevated, bed in low locked position with side rails up x 2 and bed alarm on. No s/s of distress noted at this time. Call light within reach. Will continue to monitor closely.
[2017-11-11] MEDS: ATORVASTATIN 20 MG TABLET GT SCH (20:22)
[2017-11-12] MEDS: PIPERACILLIN/TAZOBACTAM/D5W 50 ML IV SCH ×4 (02:26→20:08)
[2017-11-12 04:52] VITALS: BP 110/61
--- NOTE | 2017-11-12 06:00 | NUR ---
Yessenia care and back care provided. Repositioned q2h. All needs met. GT feeding running as ordered, no residuals noted. Will endorse accordingly.
[2017-11-12] MEDS: Z GUARD REMEDY PASTE 57 GM TUBE TOP SCH ×2 (09:00→20:08)
--- NOTE | 2017-11-12 10:00 | NUR ---
DR FARIAS SEE PATIENT AND LAB THIS AM NEW ORDER AM LAB
[2017-11-12 11:24] VITALS: BP 103/53
--- NOTE | 2017-11-12 12:00 | NUR ---
DR THOMASON VISITED TODAY NO ORDER REPOSITION Q2 HR ADRIANA WELL GT FEEDING ADRIANA OK NO N/V RESIDUAL ONLY 5ML
[2017-11-12 15:34] VITALS: BP 134/61
[2017-11-12] MEDS: RIVAROXABAN 10 MG TABLET PO SCH (16:37)
--- NOTE | 2017-11-12 17:30 | NUR ---
HEMODYNAMIC STATUS STABLE NO ACUTE DISTRESS PAIN UNDER CONTROL ON FALL/ASPIRATION PRECAUTION BED ALARM ON AND CALL LIGHT IN REACH
--- NOTE | 2017-11-12 19:51 | NUR ---
No s/s of distress noted at this time. GT feeding running at 40 cc/h, gt flushing well with no residuals noted. Will continue to monitor and reposition throughout shift. Bed in low, locked position. Bed alarm on. Call light within reach.
[2017-11-12 20:00] VITALS: BP 143/53
[2017-11-12] MEDS: ATORVASTATIN 20 MG TABLET GT SCH (20:08)
[2017-11-13] MEDS: PIPERACILLIN/TAZOBACTAM/D5W 50 ML IV SCH ×4 (02:05→20:38)
--- NOTE | 2017-11-13 06:00 | NUR ---
REPOSITIONED, RACH CARE AND BACK CARE PROVIDED. NO DISTRESS THROUGHOUT SHIFT. HOB ELEVATED. NO S/S OF ACUTE DISTRESS AT THIS TIME. BED IN LOW, LOCKED POSITION WITH BED ALARM ON. CALL LIGHT WITHIN REACH.
[2017-11-13 06:16] LABS: BASOPHILS # (AUTO) 0.1 K/uL (0.0-8.0); BASOPHILS % (AUTO) 0.7 % (0.0-2.0); EOSINOPHILS # (AUTO) 0.5 K/uL (0.0-0.7); HEMATOCRIT 39.5 % (36.7-47.1); HEMOGLOBIN 13.5 g/dL (12.5-16.3); LYMPHOCYTES % (AUTO) 10.8 % (20.5-51.5); MEAN CORPUSCULAR HEMOGLOBIN 30.7 uug (23.8-33.4); MEAN CORPUSCULAR HGB CONC 34 g/dL (32.5-36.3); MEAN CORPUSCULAR VOLUME 89.9 fL (73.0-96.2); MONOCYTES # (AUTO) 0.7 K/uL (2.0-10.0); MONOCYTES % (AUTO) 8.1 % (0.0-11.0); NEUTROPHILS # (AUTO) 6.7 K/uL (1.8-8.9); NEUTROPHILS % (AUTO) 75.4 % (38.5-71.5); PLATELET COUNT (AUTO) 248 K/uL (152-348); WHITE BLOOD COUNT (AUTO) 8.9 K/uL (3.6-10.2)
[2017-11-13 06:27] VITALS: BP 128/61
[2017-11-13 06:28] LABS: ALANINE AMINOTRANSFERASE 34 U/L (16-63); ALKALINE PHOSPHATASE 81 U/L (50-136); ASPARTATE AMINOTRANSFERASE 31 U/L (15-37); BILIRUBIN,TOTAL 0.3 mg/dL (0.2-1.0); CARBON DIOXIDE 27 mmol/L (21-32); CHLORIDE 106 mmol/L (98-107); CREATININE 1.1 mg/dL (0.6-1.3); GLUCOSE 104 mg/dL (74-106); PHOSPHOROUS 3.5 mg/dL (2.5-4.9); POTASSIUM 3.9 mmol/L (3.5-5.1); TOTAL PROTEIN, SERUM 6.4 g/dL (6.4-8.2); UREA NITROGEN, BLOOD 19 mg/dL (7-18)
[2017-11-13] MEDS: Z GUARD REMEDY PASTE 57 GM TUBE TOP SCH ×2 (08:28→20:39)
[2017-11-13 11:16] VITALS: BP 118/58
[2017-11-13 15:26] VITALS: BP 110/58
[2017-11-13] MEDS: SUCRALFATE 1 G/10 ML LIQUID UDC GT SCH ×2 (17:19→20:38)
[2017-11-13] MEDS: RIVAROXABAN 10 MG TABLET PO SCH (17:21)
--- NOTE | 2017-11-13 18:08 | NUR ---
PATIENT WAITING FOR PLACEMENT, NO CHANGES IN PATIENT CONDITION THROUGHOUT SHIFT, ALL SAFETY AND COMFORT MEASURES ATTENDED TO, ALL DUE MEDICATIONS GIVEN, IV AND PEG TUBE PATENT AND INFUSING WELL, NO RESIDUAL THROUGHOUT SHIFT CALL LIGHT IN REACH.
[2017-11-13 20:00] VITALS: BP 109/56
[2017-11-13] MEDS: ATORVASTATIN 20 MG TABLET GT SCH (20:38)
--- NOTE | 2017-11-13 21:19 | NUR ---
Report given to Juana HOFFMAN from [facility]
--- NOTE | 2017-11-13 23:10 | NUR ---
Report given to paramedics. No s/s of acute distress noted. Pt discharged via gurney in a fair condition. Vital signs WNL. No new orders per DNP Montserrat.
[2017-11-14] MEDS ORDERED: PANTOPRAZOLE SODIUM 40 MG VIAL IV SCH (09:00)
== END 2017-11-13 23:30 | DRG 871 ==
LOC: ER 18:19 → TELE 11-02 00:16 → TELE-TD 11-02 11:35 → MED 11-07 11:05
PROVIDERS: ADMIT Internal Medicine; ATTEND Internal Medicine
PROC: 0DB68ZX Excision of Stomach, Via Natural or Artificial Opening Endoscopic, Diagnostic (ICD-10-PCS; 2017-11-11)
PROC: 0DH63UZ Insertion of Feeding Device into Stomach, Percutaneous Approach (ICD-10-PCS; principal; 2017-11-11 08:45)
DX: A41.9 Sepsis, unspecified organism (principal); J69.0 Pneumonitis due to inhalation of food and vomit; J96.01 Acute respiratory failure with hypoxia; N17.0 Acute kidney failure with tubular necrosis; G92 Toxic encephalopathy; E87.0 Hyperosmolality and hypernatremia; D68.59 Other primary thrombophilia; E44.1 Mild protein-calorie malnutrition; I69.851 Hemiplegia and hemiparesis following other cerebrovascular disease affecting right dominant side; I48.92 Unspecified atrial flutter; N39.0 Urinary tract infection, site not specified; R65.20 Severe sepsis without septic shock; R13.10 Dysphagia, unspecified; I48.0 Paroxysmal atrial fibrillation; I69.820 Aphasia following other cerebrovascular disease; E55.9 Vitamin D deficiency, unspecified; Z79.899 Other long term (current) drug therapy; Z79.02 Long term (current) use of antithrombotics/antiplatelets; G30.9 Alzheimer's disease, unspecified; F02.80 Dementia in other diseases classified elsewhere, unspecified severity, without behavioral disturbance, psychotic disturbance, mood disturbance, and anxiety; I69.891 Dysphagia following other cerebrovascular disease; Z68.27 Body mass index [BMI] 27.0-27.9, adult; T50.1X5A Adverse effect of loop [high-ceiling] diuretics, initial encounter; Y92.230 Patient room in hospital as the place of occurrence of the external cause; N14.1 Nephropathy induced by other drugs, medicaments and biological substances; K44.9 Diaphragmatic hernia without obstruction or gangrene; I71.2 Thoracic aortic aneurysm, without rupture; K26.9 Duodenal ulcer, unspecified as acute or chronic, without hemorrhage or perforation; K29.70 Gastritis, unspecified, without bleeding; R31.9 Hematuria, unspecified; I11.0 Hypertensive heart disease with heart failure; I25.10 Atherosclerotic heart disease of native coronary artery without angina pectoris; E78.5 Hyperlipidemia, unspecified; M89.9 Disorder of bone, unspecified; D64.9 Anemia, unspecified; Z77.090 Contact with and (suspected) exposure to asbestos; Z91.81 History of falling; I50.9 Heart failure, unspecified; R62.7 Adult failure to thrive
CPT/HCPCS: 36415; 36600; 70030-TC; 71045; 71275; 76770; 83605; 83735; 84100; 84156; 84300; 84443; 85025; 85610; 85730; 87040; 87070; 87086; 88342; 92526; 92610; 93005; 93307; A4217; A4663; C1758; J0696; J1650; J1940; J2543; J3370; J3490; J7030; J7042; J7060; J7070; Q9967